=== PATIENT | male | born 2000 | race Caucasian/White ===

== ENCOUNTER 2019-05-13 18:19 | Emergency (ER) | payer OTHER ==
[~2019-05-13] VITALS: Ht 172.7 cm; Wt 89.4 kg
[2019-05-13 18:24] VITALS: BP 119/58; Ht 172.7 cm; Wt 89.4 kg
== END 2019-05-13 18:49 | disposition home or self-care (01) ==
LOC: ED 18:19
DX: T78.40XA Allergy, unspecified, initial encounter (principal); J45.909 Unspecified asthma, uncomplicated; X58.XXXA Exposure to other specified factors, initial encounter
CPT/HCPCS: J7512